=== PATIENT | female | born 1950 | race Caucasian/White ===

== ENCOUNTER 2023-02-19 09:37 | Day surgery (SDC) | payer MEDICARE, OTHER ==
[~2023-02-19] VITALS: Ht 175.3 cm; Wt 77.1 kg
[2023-02-19] MEDS ORDERED: LEVSOD25 (09:53)
[2023-02-19] MEDS ORDERED: LEVE500 (09:53)
[2023-02-19] MEDS ORDERED: METR59TL (09:53)
[2023-02-19] MEDS ORDERED: ATOR20 (09:53)
[2023-02-19] MEDS ORDERED: IBUP200 (09:54)
[2023-02-19] MEDS ORDERED: CRAN-MAX500 MG (09:54)
[2023-02-19] MEDS ORDERED: DOXY100 (09:54)
[2023-02-19] MEDS ORDERED: LORA.5 (09:54)
[2023-02-19 11:17] VITALS: BP 106/57
== END 2023-02-19 11:33 | disposition home or self-care (01) ==
LOC: ORSCSDS 09:37
PROVIDERS: Student in an Organized Health Care Education/Training Program
PROC: 0DB68ZX Excision of Stomach, Via Natural or Artificial Opening Endoscopic, Diagnostic (ICD-10-PCS; principal; 2023-02-19 11:00)
DX: K70.30 Alcoholic cirrhosis of liver without ascites (principal); I85.10 Secondary esophageal varices without bleeding; K29.70 Gastritis, unspecified, without bleeding; K44.9 Diaphragmatic hernia without obstruction or gangrene; K22.2 Esophageal obstruction; K31.7 Polyp of stomach and duodenum; E78.5 Hyperlipidemia, unspecified; F41.9 Anxiety disorder, unspecified; E03.9 Hypothyroidism, unspecified; I67.1 Cerebral aneurysm, nonruptured; D69.59 Other secondary thrombocytopenia; Z87.891 Personal history of nicotine dependence; Z79.899 Other long term (current) drug therapy
CPT/HCPCS: 88305; 88341; 88342; J2704; J7120